=== PATIENT | female | born 1975 | race Caucasian/White ===

== ENCOUNTER → 2025-08-28 | Outpatient (CLI) | payer SELFPAY ==
--- NOTE | 2025-08-28 07:21 | US_ITS ---
PROCEDURE: ABDOMEN LIMITED 08/28/2025 REASON FOR EXAM: RUQ PAIN TECHNIQUE: Procedure Code: USABDL Modality: US Procedure: ABDOMEN LIMITED FINDINGS: GALLBLADDER: No gallstones. no gallbladder wall thickening or pericholecystic fluid. Negative Rivera sign. COMMON BILE DUCT: Measures 2.1 mm. No intrahepatic biliary dilatation. LIVER: Hepatomegaly to 21.6 cm. Normal echotexture. No definite hepatic mass. RIGHT KIDNEY: Normal in size and echogenicity. No mass. No urinary stones. Mild hydronephrosis. Pancreas: Echogenic. US/Abdomen Limited IMPRESSION: Mild hydronephrosis of the right kidney. Hepatomegaly. No acute cholecystitis . Reading Location: [id number]
--- OUTSIDE RECORDS SUMMARY | 2025-08-28 07:22 | XMS RPT_ITS | CCD ---
Author Organization [facility] Results Test Name Value Interpretation Reference Range Facil ity FT4on 07-20-2022 Free T4 [Mass/Vol] 0.94 ng/dL Normal 0.89-1.76 [facility] ([place]) Comment on above: Result Comment: No te - New Reference Range in effect 20 Performed By: #### F T4, TSH #### [place] [id number] [place] [address] TSHon 07-20-2022 TSH 8.348 mIU/mL High 0.550-4.780 [facility] ([place]) Comment on above: Result Comment: No te - New Reference Range in effect 20 Performed By: #### F T4, TSH #### [address] [address] .GFRon 05-18-2022 GFR Non- >60 Normal [facility] ([place]) Comment on above: Result Comment: GFR Population mean for , Non- Americans Ages 20-29 = 116 mL/min/1.73 sq.m. Ages 30-39 = 107 mL/min/1.73 sq.m. Ages 40-49 = 99 mL/min/1.73 sq.m. Ages 50-59 = 93 mL/min/1.73 sq.m. Ages 60-69 = 85 mL/min/1.73 sq.m. Ages 70+ = 75 mL/min/1.73 sq.m. Chronic Kidney Disease: Less than 60 mL/min/1.73 square meters End Stage Renal Disease: Less than 15 mL/min/1.73 square meters Performed By: #### G FR, CMP, TSH, A1C #### [facility] [address] [place] [id number] GFR >60 Normal [facility] ([place]) Comment on above: Result Comment: GFR Population mean for , Non- Americans Ages 20-29 = 116 mL/min/1.73 sq.m. Ages 30-39 = 107 mL/min/1.73 sq.m. Ages 40-49 = 99 mL/min/1.73 sq.m. Ages 50-59 = 93 mL/min/1.73 sq.m. Ages 60-69 = 85 mL/min/1.73 sq.m. Ages 70+ = 75 mL/min/1.73 sq.m. Chronic Kidney Disease: Less than 60 mL/min/1.73 square meters End Stage Renal Disease: Less than 15 mL/min/1.73 square meters Performed By: #### G FR, CMP, TSH, A1C #### [address] [address] A1Con 05-18-2022 HbA1c (Bld) [Mass fraction] 5.3 % Normal 4.0-6.0 [facility] ([place]) Comment on above: Performed By: #### G FR, CMP, TSH, A1C #### [address] [address] CMPon 05-18-2022 Albumin Level 4.3 G/dL Normal 3.2-4.8 [facility] ([place]) Comment on above: Performed By: #### G FR, CMP, TSH, A1C #### [address] [address] Albumin/Globulin [Mass ratio] 1.2 {ratio} Normal 0.9-1.6 [facility] ([place]) Comment on above: Performed By: #### G FR, CMP, TSH, A1C #### [address] [address] ALP [Catalytic activity/Vol] 86 U/L Normal 38-126 [facility] ([place]) Comment on above: Performed By: #### G FR, CMP, TSH, A1C #### [address] [address] ALT [Catalytic activity/Vol] 19 U/L Normal 10-49 [facility] ([place]) Comment on above: Performed By: #### G FR, CMP, TSH, A1C #### [address] [address] AST [Catalytic activity/Vol] 27 U/L Normal 8-34 [facility] ([place]) Comment on above: Performed By: #### G FR, CMP, TSH, A1C #### [address] [address] Bili Total 0.70 mg/dL Normal 0.20-1.20 [facility] ([place]) Comment on above: Result Comment: Use of this assay is not recommended for patients undergoing treatment with eltrombopag due to the potential for falsely elevated results. Performed By: #### G FR, CMP, TSH, A1C #### [place] [id number] BUN/Creatinine Ratio 14.3 ratio Normal 10.0-22.0 [facility] ([place]) Comment on above: Performed By: #### G FR, CMP, TSH, A1C #### [address] [address] Calcium [Mass/Vol] 9.7 mg/dL Normal 8.7-10.4 [facility] ([place]) Comment on above: Performed By: #### G FR, CMP, TSH, A1C #### [address] [address] Chloride [Moles/Vol] 105 mmol/L Normal 98-110 [facility] ([place]) Comment on above: Performed By: #### G FR, CMP, TSH, A1C #### [address] [address] CO2 [Moles/Vol] 30 mmol/L Normal 22-32 [facility] ([place]) Comment on above: Performed By: #### G FR, CMP, TSH, A1C #### [address] [address] Creatinine [Mass/Vol] 0.70 mg/dL Normal 0.50-1.20 [facility] ([place]) Comment on above: Performed By: #### G FR, CMP, TSH, A1C #### [address] [address] Electrolyte Balance 5.0 mEq/L Normal 4.0-15.0 [facility] ([place]) Comment on above: Performed By: #### G FR, CMP, TSH, A1C #### [address] [address] Globulin 3.7 G/dL Normal 1.5-3.8 [facility] ([place]) Comment on above: Performed By: #### G FR, CMP, TSH, A1C #### [address] [address] Glucose [Mass/Vol] 86 mg/dL Normal 70-110 [facility] ([place]) Comment on above: Performed By: #### G FR, CMP, TSH, A1C #### [address] [address] Potassium [Moles/Vol] 4.4 mmol/L Normal 3.5-5.0 [facility] ([place]) Comment on above: Performed By: #### G FR, CMP, TSH, A1C #### [address] [address] Sodium [Moles/Vol] 140 mmol/L Normal 136-145 [facility] ([place]) Comment on above: Performed By: #### G FR, CMP, TSH, A1C #### [address] [address] Total Protein 8.0 G/dL Normal 5.7-8.2 [facility] ([place]) Comment on above: Result Comment: No te - New Reference Range in effect 20 Performed By: #### G FR, CMP, TSH, A1C #### [address] [address] Urea nitrogen [Mass/Vol] 10.0 mg/dL Normal 8.0-22.0 [facility] ([place]) Comment on above: Performed By: #### G FR, CMP, TSH, A1C #### [address] [address] TSHon 05-18-2022 TSH 7.598 mIU/mL High 0.550-4.780 [facility] ([place]) Comment on above: Result Comment: No te - New Reference Range in effect 20 Performed By: #### G FR, CMP, TSH, A1C #### [place] [id number] [place], [place] [id number] Summary Purpose Family History No Family History Records Found Advance Directives No Advanced Directives Records Found Additional Source Comments INFORMATION SOURCE (unrecogn ized section and content) DATE CREATED AUTHOR 07/24/2022 [facility] ([place]) FOR RECORDS PERTAINING TO PATIENTS WHO ARE OR HAVE BEEN ENROLLED IN A CHEMICAL DEPENDENCY/SUBSTANCEABUSE PROGRAM, SOME INFORMATION MAY BE OMITTED. This clinical summary was aggregated from multiple sources. Caution should be exercised in using it in the provision of clinical care. This summary normalizes information from multiple sources, and as a consequence, information in this document may materially change the coding, format and clinical context of patient data. In addition, data may be omitted in some cases. CLINICAL DECISIONS SHOULD BE BASED ON THE PRIMARY CLINICAL RECORDS. [employer] provides no warranty or guarantee of the accuracy or completeness of information in this document.
== END | disposition home or self-care (01) ==
PROVIDERS: PCP Nurse Practitioner Family; Referring Provider Nurse Practitioner Family; Visit Provider Nurse Practitioner Family
DX: R10.11 Right upper quadrant pain (principal)
CPT/HCPCS: 76705

== ENCOUNTER 2025-09-25 16:47 | Emergency (ER) | payer OTHER, SELFPAY ==
[2025-09-25 16:48] VITALS: BP 162/94; PULSE 106; RESP 18; TEMP 36.6; O2SAT 100; BMI 34.5
[2025-09-25 17:43] LABS: Hematocrit 37.6 % (37-47); Hemoglobin 12.3 g/dL (12.0-15.0); Immature Granulocytes Count 0.020 X10^3/uL (0.0-0.0); Mean Corp Hgb Conc 32.7 g/dL (32-36); Mean Corpuscular Volume 86.0 fL (81-99); Mean Platelet Vol. 9.5 fl (6.2-12.0); NRBC Flagged by Analyzer 0 % (0-5); Platelet Count 257 K/mm3 (150-450); RBC Distribution Width CV 13.9 % (11.6-14.6); RBC Distribution Width SD 43.6 fl (35.1-43.9); Red Blood Count 4.37 M/mm3 (4.2-5.4); White Blood Count 7.1 K/mm3 (4.4-11.0)
[2025-09-25 18:01] LABS: AST(SGOT) 22 U/L (<=31); Alanine Aminotransfer ALT/SGPT 11 U/L (<=34); Albumin, Serum 4.6 g/dL (3.5-5.0); Alkaline Phosphatase 88 U/L (35-104); Anion Gap 9 (7-18); BUN 10 mg/dL (4-19); BUN/Creat Ratio 13.8 RATIO (10-20); Calcium,Total 9.5 mg/dL (7.6-11.0); Carbon Dioxide 26.0 mmol/L (20.0-29.0); Chloride 103 mmol/L (96-106); Estimated Creatinine Clearance 121.50 ml/min (50-250); Globulin 3.5 g/dL (2.2-4.2); Glucose 95 mg/dL (70-99); Lipase 25 U/L (13-75); Potassium 3.8 mmol/L (3.5-5.1)
[2025-09-25 18:28] LABS: Internal QC Validated? YES +Cl - CLEAR BKGD; Pregnancy, Serum, hCG Quali. NEGATIVE Negative
--- OUTSIDE RECORDS SUMMARY | 2025-09-25 18:41 | XMS RPT_ITS | CCD ---
Author Organization [place] [facility] Results Test Name Value Interpretation Reference Range Facil ity FT4on 07-20-2022 Free T4 [Mass/Vol] 0.94 ng/dL Normal 0.89-1.76 [facility] ([place]) Comment on above: Result Comment: No te - New Reference Range in effect 20 Performed By: #### F T4, TSH #### [address] [address] TSHon 07-20-2022 TSH 8.348 mIU/mL High 0.550-4.780 [facility] ([place]) Comment on above: Result Comment: No te - New Reference Range in effect 20 Performed By: #### F T4, TSH #### [address] [address] .GFRon 05-18-2022 GFR Non- >60 Normal [facility] ([place]) Comment on above: Result Comment: GFR Population [...] #### G FR, CMP, TSH, A1C #### [facility] [address] [place] [address] GFR >60 Normal [facility] ([place]) Comment on above: Result Comment: GFR Population [...] #### G FR, CMP, TSH, A1C #### [address] [address] A1Con 05-18-2022 HbA1c (Bld) [Mass fraction] 5.3 % Normal 4.0-6.0 [facility] ([place]) Comment on above: Performed By: #### G FR, CMP, TSH, A1C #### [address] [address] CMPon 05-18-2022 Albumin Level 4.3 G/dL Normal 3.2-4.8 [facility] ([place]) Comment on above: Performed By: #### G FR, CMP, TSH, A1C #### [address] [address] Albumin/Globulin [Mass ratio] 1.2 {ratio} Normal 0.9-1.6 [facility] ([place]) Comment on above: Performed By: #### G FR, CMP, TSH, A1C #### [address] [address] ALP [Catalytic activity/Vol] 86 U/L Normal 38-126 [facility] ([place]) Comment on above: Performed By: #### G FR, CMP, TSH, A1C #### [address] [address] ALT [Catalytic activity/Vol] 19 U/L Normal 10-49 [facility] ([place]) Comment on above: Performed By: #### G FR, CMP, TSH, A1C #### [address] [address] AST [Catalytic activity/Vol] 27 U/L Normal 8-34 [facility] ([place]) Comment on above: Performed By: #### G FR, CMP, TSH, A1C #### [address] [address] Bili Total 0.70 mg/dL Normal 0.20-1.20 [facility] ([place]) Comment on above: Result Comment: Use of this assay is not recommended for patients undergoing treatment with eltrombopag due to the potential for falsely elevated results. Performed By: #### G FR, CMP, TSH, A1C #### [place] [id number] BUN/Creatinine Ratio 14.3 ratio Normal 10.0-22.0 [facility] ([place] Comment on above: Performed By: #### G FR, CMP, TSH, A1C #### [address] [address] Calcium [Mass/Vol] 9.7 mg/dL Normal 8.7-10.4 [facility] ([place]) Comment on above: Performed By: #### G FR, CMP, TSH, A1C #### [address] [address] Chloride [Moles/Vol] 105 mmol/L Normal 98-110 [facility] ([place]) Comment on above: Performed By: #### G FR, CMP, TSH, A1C #### [address] [address] CO2 [Moles/Vol] 30 mmol/L Normal 22-32 [facility] ([place]) Comment on above: Performed By: #### G FR, CMP, TSH, A1C #### [address] [address] Creatinine [Mass/Vol] 0.70 mg/dL Normal 0.50-1.20 [facility] ([place]) Comment on above: Performed By: #### G FR, CMP, TSH, A1C #### [address] [address] Electrolyte Balance 5.0 mEq/L Normal 4.0-15.0 [facility] ([place]) Comment on above: Performed By: #### G FR, CMP, TSH, A1C #### [address] [address] Globulin 3.7 G/dL Normal 1.5-3.8 [facility] ([place]) Comment on above: Performed By: #### G FR, CMP, TSH, A1C #### [address] [address] Glucose [Mass/Vol] 86 mg/dL Normal 70-110 [facility] ([place]) Comment on above: Performed By: #### G FR, CMP, TSH, A1C #### [address] [address] Potassium [Moles/Vol] 4.4 mmol/L Normal 3.5-5.0 [facility] ([place]) Comment on above: Performed By: #### G FR, CMP, TSH, A1C #### [address] [address] Sodium [Moles/Vol] 140 mmol/L Normal 136-145 [facility] ([place]) Comment on above: Performed By: #### G FR, CMP, TSH, A1C #### [address] [address] Total Protein 8.0 G/dL Normal 5.7-8.2 [facility] ([place]) Comment on above: Result Comment: No te - New Reference Range in effect 20 Performed By: #### G FR, CMP, TSH, A1C #### [address] [address] Urea nitrogen [Mass/Vol] 10.0 mg/dL Normal 8.0-22.0 [facility] ([place]) Comment on above: Performed By: #### G FR, CMP, TSH, A1C #### [address] [address] TSHon 05-18-2022 TSH 7.598 mIU/mL High 0.550-4.780 [facility] ([place]) Comment on above: Result Comment: No te - New Reference Range in effect 20 Performed By: #### G FR, CMP, TSH, A1C #### [place] [id number] [place], [place] [id number] Summary Purpose Family History No Family History Records Found Advance Directives No Advanced Directives Records Found Additional Source Comments INFORMATION SOURCE (unrecogn ized section and content) DATE CREATED AUTHOR 07/24/2022 [facility] ([place] FOR RECORDS PERTAINING TO PATIENTS WHO ARE [...] BE BASED ON THE PRIMARY CLINICAL RECORDS. [employer] provides no warranty or guarantee of the accuracy or completeness of information in this document.
--- NOTE | 2025-09-25 18:43 | CT_ITS ---
PROCEDURE: ABDOMEN/PELVIS W IV CONT ONLY 09/25/2025 REASON FOR EXAM: RIGHT SIDED ABDOMINAL PAIN TECHNIQUE: Procedure Code: [id number] Modality: CT Procedure: ABDOMEN/PELVIS W IV CONT ONLY Coronal and Sagittal reconstruction series were provided. CONTRAST: 100 cc of Isovue 370 One or more dose reduction techniques were used (e.g., Automated exposure control, adjustment of the mA and/or kV according to patient size, use of iterative reconstruction technique. COMPARISON: Abdominal ultrasound 09/25/2025 FINDINGS: Lung bases: Unremarkable. Liver: Enlarged measuring 23.1 cm craniocaudally. No obvious hepatic mass. Gallbladder: Unremarkable. No biliary ductal dilatation. Spleen: Normal size. Pancreas: Normal size without evidence of mass surrounding inflammation or ductal dilation. Adrenals: No adrenal masses. Kidneys: Normal renal sizes. No hydronephrosis. Bladder: Underdistended, limiting evaluation. Reproductive Organs: Normal uterine size and contour. Ovaries are unremarkable. Bowel: Moderate colonic stool burden suggesting constipation. Appendix: The appendix is not identified. There is no inflammatory process identified in the right lower quadrant to suggest appendicitis. Lymph nodes: Unremarkable. Vasculature: The abdominal aorta and IVC are normal. Peritoneum / Retroperitoneum: No free fluid or air. Bones: Unremarkable. No acute fractures. CT/Abdomen/Pelvis W IV Cont ONLY IMPRESSION: 1. No acute findings in the abdomen or pelvis. 2. No evidence of right hydronephrosis. 3. Hepatomegaly measuring 21.3 cm craniocaudally. 4. Colonic stool burden suggesting constipation. Reading Location[facility]
--- NOTE | 2025-09-25 18:43 | EX.ED.DYSGE1 ---
[facility] History of Present Illness Chief Complaint: Abd Pain PFSH PFSH Allergy/AdvReac Type Severity Reaction Status Date / Time No Known Allergies Allergy Verified 09/25/25 16:50 Social History Smoking Status: Never smoker EXAM Physical Exam Const Vital Signs: 09/25/25 16:48 09/25/25 18:56 09/25/25 20:19 Temperature 98 F Temperature Source Oral Pulse Rate 106 H 72 77 Respiratory Rate 18 16 18 Blood Pressure 162/94 H 131/75 H 141/84 H Blood Pressure Mean 116 93 103 Pulse Ox 100 99 98 Oxygen Delivery Method Room Air Room Air [facility] Narrative Medical decision making narrative: HISTORY OF PRESENT ILLNESS: Chief complaint: Abdominal pain 50-year-old female with no significant past medical history presents right lower quad abdominal pain for 1/2 months as well as constipation has been on and off. Pain is intermittent with no alleviating or exacerbating features. Denies history abdominal surgeries. Denies urinary complaints, denies vaginal bleeding, denies vomiting. REVIEW OF SYSTEMS: Pertinent positives: Abdominal pain Pertinent negatives: As per HPI PHYSICAL EXAM: Nursing triage notes reviewed, Vital signs reviewed Constitutional: please see [facility] HENT: MMM Eyes: Pupils equal round and reactive to light, Extraocular muscles intact Neck: No stridor, no JVD, full neck ROM Lungs: Clear to auscultation, No wheezing or rales. No increased work of breathing, no conversational dyspnea, no accessory muscle use, no nasal flaring. No respiratory distress noted Heart: Regular rate and rhythm, No murmurs, No rubs and No gallops, 2+ distal pulses (radial, femoral, posterior tibial) in all extremities Abdomen: Soft, there is no elicited tenderness, rigidity, rebound or guarding, no obvious peritoneal signs, no palpable pulsatile abdominal masses, no auscultated abdominal bruit : No CVAT Extremities: No edema Neuro: No new focal neurological deficits, cranial nerves II through XII intact, 5/5 strength in all present extremities. Intact sensation to light touch in all present extremities, 2+ reflexes bilateral patella tendons. Skin: No rash or lesions noted MEDICAL DECISION MAKING: Chief Complaint: please see [facility] External records reviewed: Reviewed abdominal ultrasound from August 2025 which showed mild hydronephrosis of right kidney, hepatomegaly but no acute cholecystitis. No gallstones. Factors affecting care: none Social determinants of health: [place] History obtained from others: Family Consults: none MDM Narrative: The patient was initially hemodynamically stable, afebrile and nontoxic-appearing. Exam no pulsatile abdominal masses, peritoneal signs. No elicited tenderness I considered the following differential diagnosis: AAA, small bowel obstruction, abdominal perforation, appendicitis, pancreatitis, hepatobiliary pathology (acute cholecystitis), mesenteric ischemia, pathology (ie nephrolithiasis, pyelonephritis). I obtained a broad lab and imaging work to further determine if the patient was suffering from a life-threatening etiology. I offer the patient pain, nausea medicine and fluid cessation however she refused stating she is out of pain at this time was not nauseous ALL IMAGES (IF OBTAINED) HAVE BEEN PERSONALLY REVIEWED AND INTERPRETED BY MYSELF. CBC without leukocytosis, severe anemia, no thrombocytopenia. CMP without evidence of acute kidney injury, significant electrolyte abnormality, anion gap to suggest end organ hypo-perfusion, no evidence of metabolic acidosis with a normal bicarbonate, no evidence of hepatobiliary obstructive pathology. Lipase is wnl indicating no pancreatic inflammation. Serum test CT scan abdomen pelvis showed constipation but no evidence of acute surgical pathology Repeat abdominal exam remained benign. The synthesis of the patient's history, physical exam, labs images suggest no acute laboratory etiology. Presentation may be related to constipation or some form of inflammatory bowel disease. Will give GI follow-up. Strict return precautions discussed. Follow-up instructions given The patient and/or family, caregivers express understanding. The patient and/or family, caregivers agrees with the plan. Shared decision making: I will have a discussion with the patient and or visitors regarding risk/benefits of further testing or admission. They will be made aware of of the risk/benefits inherent in this decision they will be given the opportunity to voice understanding. Total critical care time today provided was at least 0 minutes. This excludes separately billable procedures. Critical care time (if documented) is secondary to the patient having high probability of clinically significant/life threatening deterioration in the patient's condition which required my urgent intervention. Impression: 1. Abdominal pain 2. Constipation Dispo: Discharge home This note was generated with [employer] software. It may contain incorrect words, spelling, and punctuation that were not noted in review of the chart prior to signing. Lab Data Labs: Laboratory Results - last 24 hr 09/25/25 09/25/25 17:28 18:52 WBC 7.1 RBC 4.37 Hgb 12.3 Hct 37.6 MCV 86.0 MCH 28.1 MCHC 32.7 RDW Std Deviation 43.6 RDW Coeff of Margarita 13.9 Plt Count 257 MPV 9.5 Immature Gran % (Auto) 0.300 Neut % (Auto) 66.2 Lymph % (Auto) 25.5 [place] % (Auto) 6.2 Eos % (Auto) 1.1 Baso % (Auto) 0.7 Absolute Neuts (auto) 4.7 Absolute Lymphs (auto) 1.81 Nucleated RBC % 0 Sodium 138 Potassium 3.8 Chloride 103 Carbon Dioxide 26.0 Anion Gap 9 BUN 10 Creatinine 0.75 Estim Creat Clear Calc 121.50 Est GFR (MDRD) Non-Af 98 BUN/Creatinine Ratio 13.8 Glucose 95 Calcium 9.5 Total Bilirubin 0.48 AST 22 ALT 11 Alkaline Phosphatase 88 Total Protein 8.1 Albumin 4.6 Globulin 3.5 Albumin/Globulin Ratio 1.3 Lipase 25 Serum , Qual NEGATIVE Urine Color Straw Urine Clarity Clear Urine pH 6.5 Ur Specific [place] 1.010 Urine Protein Negative Urine Glucose (UA) Normal Urine Ketones Negative Urine Occult Blood Negative Urine Nitrite Negative Urine Bilirubin Negative Urine Urobilinogen Normal Ur Leukocyte Esterase Negative Urine RBC 0-5 SEEN Urine WBC 0-5 SEEN Ur Squamous Epith Cells 0-5 SEEN Urine Bacteria 0 SEEN Urine Mucus 0 SEEN Radiography Diagnostic Testing: Clinical Impression(s) from Imaging Studies Abdomen/Pelvis CT 09/25/25 18:43 IMPRESSION: 1. No acute findings in the abdomen or pelvis. 2. No evidence of right hydronephrosis. 3. Hepatomegaly measuring 21.3 cm craniocaudally. 4. Colonic stool burden suggesting constipation. Reading Location[facility] Discharge Plan Triage Chief Complaint: Abd Pain ED Provider: Zac Saravia Dx/Rx/DC Orders Primary Care Provider: Kirsten Osman Referrals: Kirsten Osman, [facility] [facility] [Primary Care Provider, Family Practice] Print Language: Algerian
[2025-09-25 18:56] VITALS: BP 131/75; PULSE 72; RESP 16; O2SAT 99
[2025-09-25 19:01] LABS: Mucous, Urine 0 SEEN /hpf (<or=2+)
[2025-09-25 19:06] LABS: Color, Urine Straw (Yellow); Glucose, Dipstick Normal (Normal); Ketone-Dipstick Negative (Negative); Leukocyte Esterase-Dipstick Negative /ul (Negative); Nitrite-Dipstick Negative (Negative); Occult Blood-Urine Negative /ul (Negative); Protein-Dipstick Negative (Negative); Specific Gravity, Urine 1.010 (1.002-1.030); Urine Bilirubin Dipstick Negative (Negative)
[2025-09-25 19:21] LABS: Red Blood Cells-Urine 0-5 SEEN /hpf (0-5); Squamous Epithelial Cells - UA 0-5 SEEN /hpf (5-10)
[2025-09-25 20:19] VITALS: BP 141/84; PULSE 77; RESP 18; O2SAT 98
[2025-09-25 21:13] VITALS: BP 141/84; PULSE 77; RESP 18; TEMP 36.1; O2SAT 98
== END 2025-09-25 21:29 | disposition home or self-care (01) ==
PROVIDERS: Emergency Provider Emergency Medicine; PCP Nurse Practitioner Family; Visit Provider Emergency Medicine
DX: K59.00 Constipation, unspecified (principal)
CPT/HCPCS: 74177; 80053; 81001; 83690; 84703; 85025; 99283; Q9967; A4216